=== PATIENT | female | born 2000 | race Hispanic/Latino ===

== ENCOUNTER 2023-08-30 16:19 | Observation (INO) | payer OTHER, SELFPAY | END 2023-08-30 17:07 | disposition home or self-care (01) | LOC: LABOR 16:20 | PROVIDERS: Admitting Provider Family Medicine; Referring Provider Family Medicine; Visit Provider Family Medicine | DX: Z03.71 Encounter for suspected problem with amniotic cavity and membrane ruled out (principal) | CPT/HCPCS: 59025; 84112; G0378 ==

== ENCOUNTER 2023-09-12 14:54 | Observation (INO) | payer OTHER, SELFPAY ==
--- NOTE | 2023-09-12 16:32 | PM.OBTRLD ---
Visit Information Visit Information Date of evaluation: 09/12/23 Primary OB Provider: Nathalie Frazier On-call OB Provider: Nelly Whelan Comments/Additional reasons for admission: 23yo at 31w1d who presented after falling in the grocery store. The pt reports that she tripped and fell in the grocery store, landing on her knees and then abdomen. She denies any vaginal bleeding or contractions since the fall. [facility] Surgical History (Updated 08/30/23 @ 08:27 by Nery Gonzalez, RN) History of hand surgery (~12/2022) Family History (Updated 08/30/23 @ 08:30 by Nery Gonzalez RN) Grandfather Diabetes mellitus Hypertension Grandmother Diabetes mellitus Hypertension Sister Chronic migraine Anemia Brother Kidney disease Social History marital status: number of children: 0 household members: spouse lives independently: Yes caregiver/support person: No housing: apartment pets and animals: Yes (small dog) education level: college (nearly finished w/ bachelor's degree) occupational status: student current occupational exposures/hazards: No special rodrigue needs: No travel history: recent (domestic only) seatbelt use: always water heater temp set < 120 deg: Yes working smoke detector in home: Yes fire extinguisher in home: No carbon monox detector in home: Yes firearms in home: No do you feel safe at home: Yes Smoking Status: Never smoker second hand exposure: No alcohol intake: former (~1-3/week when not ) substance use type: marijuana (not recently, not while /) during the past year weight has: remained stable (prior to ) well-balanced diet: daily or most days daily servings fruits/ve or more times/day caffeine: Yes (occasional cup tea) Type(s) of exercise: walking Evaluation Evaluation Baseline heart rate: 130 Variability: Moderate (11-25) monitor accelerations: Present Monitor Decelerations: Absent Diagnosis, Plan/Disposition Final Diagnosis (1) Ground-level fall: Status: Acute Plan/Disposition Plan: 23yo at 31w1d who presented after falling in the grocery store. No direct abdominal trauma. Prolonged NST reactive, no contractions. Pt also complaining of discolored vaginal discharge. Wet prep sent. F/U for regularly scheduled OB appt. OB Disposition: home
== END 2023-09-12 18:01 | disposition home or self-care (01) ==
LOC: LABOR 14:56
PROVIDERS: Admitting Provider Family Medicine; Referring Provider Family Medicine; Visit Provider Family Medicine
DX: O26.893 Other specified pregnancy related conditions, third trimester (principal); N89.8 Other specified noninflammatory disorders of vagina; W18.30XA Fall on same level, unspecified, initial encounter; Z3A.31 31 weeks gestation of pregnancy
CPT/HCPCS: 59025; 59050; 87210; G0378; G0379

== ENCOUNTER → 2023-10-06 09:53 | Outpatient (CLI) | payer OTHER, SELFPAY ==
[2023-10-06 10:37] LABS: Add Manual Diff / Slide Review NO; Basophils Absolute Auto 0 /uL (0-100); Basophils Percent Auto 0.1 % (0-2); Eosinophils Absolute Auto 100 /uL (0-450); Eosinophils Percent Auto 1.1 % (2-4); Hematocrit 31.2 % (36-46); Hemoglobin 10.8 g/dL (12.0-16.0); Lymphocytes Absolute Auto 1900 /uL (1100-4500); Mean Corpuscular HGB Conc 34.7 % (30-36); Mean Corpuscular Hemoglobin 33.2 PG (26-34); Mean Corpuscular Volume 95.7 fL (80-100); Monocytes Absolute Auto 500 /uL (0-900); Monocytes Percent Auto 5.4 % (3-14); Neutrophils Absolute Auto 6800 /uL (1500-7000); Neutrophils Percent Auto 73.4 % (50-75); Platelet Count 265 X10^3/uL (150-400); Red Blood Cell Count 3.27 X10^6/uL (4.0-5.2); Red Cell Distribution Width 13.1 % (11.6-14.8); White Blood Cell Count 9.3 X10^3/uL (4.5-11.0)
== END ==
PROVIDERS: PCP Family Medicine; Referring Provider Family Medicine; Visit Provider Family Medicine
DX: Z34.00 Encounter for supervision of normal first pregnancy, unspecified trimester (principal)
CPT/HCPCS: 36415; 85025; 86900; 86901

== ENCOUNTER → 2023-10-20 11:26 | Outpatient (CLI) | payer OTHER, SELFPAY ==
[2023-10-21 09:24] LABS: Strep Grp B PCR POS for Grp B Strep
== END ==
PROVIDERS: PCP Family Medicine; Visit Provider Family Medicine
DX: Z34.00 Encounter for supervision of normal first pregnancy, unspecified trimester (principal)
CPT/HCPCS: 87653

== ENCOUNTER 2023-11-11 09:02 | Observation (INO) | payer OTHER, SELFPAY ==
[2023-11-11] MEDS: AMPICILLIN 2,000 MG in SODIUM CHLORIDE 0.9% 100 ML 200 MG IV (10:00)
--- NOTE | 2023-11-11 10:08 | PM.OBHP.1 ---
OB HPI Date/Time Date of admission: 11/11/23 Date Patient Seen: 11/11/23 Time Patient Seen: 09:50 History of Present Condition Chief complaint: RULE OUT LABOR : 1 Estimated Date of Delivery: 11/13/23 Estimated Gestational Age (weeks): 39w5d Narrative: Alana Childs is a 23 year old G1 presenting at 39w5d with SROM of clear fluid at 7am this morning. She is noticing increased pelvic pressure and contractions strength/frequency since ROM. She was seen in clinic yesterday for SVE and was 1/60/-3/soft/mid. On arrival today SVE was 1-2/80/-2 and Amnisure +. has been uncomplicated aside from late transfer of care, GBS bacteriuria, placenta previa on early US which has since resolved (clearance US confirmed from outside facility), Rh- status with rhogam given late due to mid move. History of Present care: good care Dating criteria: based on LMP only Abnormal ultrasound findings: first trimester US with marginal placenta previa, cleared on 18 wk US, placenta now anterior Obstetrical complications: other (Gbs bacteriuria, marginal placenta previa (resolved)) Medical complications: none Preadmission Labs Blood type: A (-) negative -: Antibody screen: negative, GBS status: negative (GBS bacteriuria ), HBsAG: negative (outside record, 04/27/23), HIV: negative (outside record, 04/27/23) and RPR/VDLR: negative (outside record, 04/27/23) -: Chlamydia screen: not detected (outside record, 04/27/23) and Gonorrhea screen: not detected (outside record, 04/27/23) -: Rubella: immune (outside record, 04/27/23) and Varicella: unknown PAP: Normal (outside record, 04/27/23) Quad screen: Normal (outside record, 04/27/23) Cell-free DNA: Low risk male, per outside record review Evaluation Evaluation Baseline heart rate: 120 Variability: Moderate (11-25) monitor accelerations: Present Monitor Decelerations: Absent Contraction Frequency (minutes): 3 Category of Tracing: Reactive Status: Category l Dilation (cm): 1 Dilation: 1-2 cm [facility] Surgical History (Updated 08/30/23 @ 08:27 by Nery Gonzalez RN) History of hand surgery (~12/2022) Family History (Updated 08/30/23 @ 08:30 by Nery Gonzalez RN) Grandfather Diabetes mellitus Hypertension Grandmother Diabetes mellitus Hypertension Sister Chronic migraine Anemia Brother Kidney disease Social History marital status: number of children: 0 household members: spouse lives independently: Yes caregiver/support person: No housing: apartment pets and animals: Yes (small dog) education level: college (nearly finished w/ bachelor's degree) occupational status: student current occupational exposures/hazards: No special rodrigue needs: No travel history: recent (domestic only) seatbelt use: always water heater temp set < 120 deg: Yes working smoke detector in home: Yes fire extinguisher in home: No carbon monox detector in home: Yes firearms in home: No do you feel safe at home: Yes Smoking Status: Never smoker second hand exposure: No alcohol intake: former (~1-3/week when not ) substance use type: marijuana (not recently, not while /) during the past year weight has: remained stable (prior to ) well-balanced diet: daily or most days daily servings fruits/ve or more times/day caffeine: Yes (occasional cup tea) Type(s) of exercise: walking Meds Home Medications and Allergies Home Medications Medication Instructions Recorded Confirmed Type vit 122-ferrous fumarate tab PO 08/30/23 11/10/23 History 27 mg iron-folic acid 800 mcg tablet ( Multi) ferrous sulfate 325 mg (65 mg 325 mg PO DAILY 09/22/23 11/11/23 History iron) tablet (FeroSul) famotidine 20 mg tablet (Pepcid) 20 mg PO DAILY #30 tabs 10/06/23 11/11/23 Rx Allergies Allergy/AdvReac Type Severity Reaction Status Date / Time No Known Drug Allergies Allergy Verified 11/11/23 10:12 Review of Systems Review of Systems Narrative: + contractions + pelvic pressure + LOF + movement OB Exam Vital signs Blood Pressure: 110/72 Pulse Rate: 65 Temperature: 96.3 F Narrative Exam Narrative: Gen: uncomfortable appearing, pacing, breathing through contractions pulm: breathing comfrtably between contractions CV; warm and well perfused Abd: gravid Objective Labs 11/11/23 09:55 Assessment and Plan Assessment and Plan Assessment and Plan narrative: 23 yo G1 presenting at 39w5d by LMP C/w first trimester US with SROM at 7am on # SROM: now 3 hrs since ROM, no sign of infection - Admit to LD - GBS positive - One starting 2nd dose of GBS ppx, will plan to start pitocin for augmentation unless contraction pattern becoes more consistent and pt starts making cervical change - Continuous monitoring, Cat 1 now - CBC, TS - Rh negative, will need Rhogam - Rubbella immune, VZV unkn - HIV, RPR, hep B, Gc/chl negative - Partner Dav is present - cfDNA: low risk male completed at outside facility # GBS bacteriuria in - Start Ampicillin ppx now Time-Based Coding :: [TOTAL MINUTES] spent with patient and on the chart (including review of chart, obtaining history, exam, reviewing outside data, placing orders, documenting exam and treatment plan, and counseling patient) on [DATE].
[2023-11-11] MEDS: LACTATED RINGERS 1,000 ML 100 ML IV (10:10)
[2023-11-11 10:12] LABS: Add Manual Diff / Slide Review NO; Basophils Absolute Auto 0 /uL (0-100); Basophils Percent Auto 0.5 % (0-2); Eosinophils Absolute Auto 100 /uL (0-450); Eosinophils Percent Auto 1.2 % (2-4); Hematocrit 34.7 % (36-46); Hemoglobin 11.9 g/dL (12.0-16.0); Lymphocytes Absolute Auto 2100 /uL (1100-4500); Mean Corpuscular HGB Conc 34.2 % (30-36); Mean Corpuscular Hemoglobin 32.1 PG (26-34); Mean Corpuscular Volume 93.8 fL (80-100); Monocytes Absolute Auto 500 /uL (0-900); Monocytes Percent Auto 5.5 % (3-14); Neutrophils Absolute Auto 5700 /uL (1500-7000); Neutrophils Percent Auto 67.8 % (50-75); Platelet Count 266 X10^3/uL (150-400); White Blood Cell Count 8.4 X10^3/uL (4.5-11.0)
[2023-11-11 10:14] VITALS: BP 115/69
[2023-11-11 10:26] VITALS: BP 110/72; PULSE 65; TEMP 35.7
--- NOTE | 2023-11-11 10:34 | PM.AN.REGBLK ---
Regional Block Pre-procedure Procedure: Continuous Lumbar Epidural for L&D Attending OB provider: Nathalie Frazier PM/ROS narrative: 23 y/o G1, term labor, no medical or obstetric complications. ASA Class: II Labs: Hct 34.7 % (36-46) L 11/11/23 09:55 Plt Count 266 X10^3/uL (150-400) 11/11/23 09:55 Medications: Current Medications Generic Name Dose Route Start Last Admin Trade Name Freq PRN Reason Stop Dose Admin Calcium Carbonate 1,000 mg 11/11/23 09:41 Calcium Carbonate 500 Mg Tab PO Q2HR PRN Dyspepsia Carboprost Tromethamine 250 mcg 11/11/23 09:41 Carboprost 250 Mcg/Ml Ampul IM Q90M PRN Bleeding Oxytocin/Lactated Ringer's 30 unit in 500 mls @ 200 mls/hr 11/11/23 09:41 Oxytocin Premix IV CONT PRN Bleeding Protocol Tranexamic Acid 1,000 mg/ 100 mls @ 600 mls/hr 11/11/23 09:41 Sodium Chloride IV NOW PRN Bleeding Oxytocin/Lactated Ringer's 30 unit in 500 mls @ 2 mls/hr 11/11/23 09:45 Oxytocin Premix IV TITRATE JANEL Protocol 2 MILLIUNIT/MIN Lactated Ringer's 1,000 mls @ 100 mls/hr 11/11/23 09:45 11/11/23 10:10 Lactated Ringers IV 11/11/23 19:44 100 mls/hr CONT JANEL Administration Ampicillin Sodium 1,000 mg/ 100 mls @ 200 mls/hr 11/11/23 14:00 Sodium Chloride IV Q4H JANEL Lidocaine HCl 20 ml 11/11/23 09:41 Lidocaine 1% 20 Ml INJ INTRA-OP PRN Post Delivery Methylergonovine Maleate 0.2 mg 11/11/23 09:41 Methylergonovine 0.2 Mg Tablet PO Q6HR PRN Heavy Bleeding Methylergonovine Maleate 0.2 mg 11/11/23 09:41 Methylergonovine 0.2 Mg/Ml Vial IM NOW PRN Bleeding Mineral Oil 30 ml 11/11/23 09:41 Mineral Oil 30 Ml Udc TOP PRN PRN Version Misoprostol 800 mcg 11/11/23 09:41 Misoprostol 200 Mcg Tablet WA NOW PRN Bleeding Misoprostol 400 mcg 11/11/23 09:41 Misoprostol 200 Mcg Tablet SL NOW PRN Bleeding Naloxone HCl 0.2 mg 11/11/23 09:41 Naloxone 0.4 Mg/Ml Vial IV Q2MIN PRN Opiate Reversal Ondansetron HCl 4 mg 11/11/23 09:41 Ondansetron 4 Mg/2 Ml Inj IV Q4HR PRN Nausea And Vomiting Oxytocin 10 unit 11/11/23 09:41 Oxytocin 10 Unit/Ml Vial IM NOW PRN Bleeding Allergies: Allergies Allergy/AdvReac Type Severity Reaction Status Date / Time No Known Drug Allergies Allergy Verified 11/11/23 10:12 Procedure Insertion date: 11/11/23 Insertion time: 10:48 Prep/Local: betadine x3 and 1% lidocaine Interspace: L34 Patient position: sitting Needle: 18 gauge Hustead (CSE: 27g Pencan through Hustead, clear CSF, 1mL 0.25% MPF Bupiv) Loss of resistance with: saline SILVINA at (cm): 5 Catheter placed at SKIN (cm): 11 Catheter in SPACE (cm): 6 Insertion: No CSF, No Blood, No Paresthesia with insertion, No Paresthesia with injection and No Test dose reaction Initial Medications TEST DOSE time: 10:50 TEST DOSE: 1.5% lidocaine with epinephrine 1:200k (mL): 3 BOLUS DOSE time: 10:57 BOLUS DOSE (mL): 4 BOLUS DOSE med: other (infusate) Infusion INFUSION: 0.125% bupivacaine and with fentanyl 2 mcg/mL Initial rate (mL/hr): 8 Subsequent interventions: 11/11 0840: feeling contractions/pressure perineal. 5mL 0.25% bupiv and rate 8 --> 10mL/h. 0900: 5mL 2-chloroprocaine and 50mcg fentanyl To OR for CS, failure to progress. Post-procedure Anesthesia date START: 11/11/23 Anesthesia time START: 10:40 Anesthesia date END: 11/12/23 Anesthesia time END: 10:14 Post-procedure Anesthesia Assessment: Yes CV function: HR/BP stable, Yes Resp function: RR/sat/airway adequate, Yes Post-op hydration adequate, Yes Pain control adequate, Yes Nausea & vomiting absent, Yes Temperature > 36 C, Yes Mental status appropriate and No Anesthesia complications
[2023-11-11] MEDS: OXYTOCIN PREMIX 30 UNIT/500 ML PLAST..BAG IV (11:45)
[2023-11-11] MEDS: AMPICILLIN 1,000 MG in SODIUM CHLORIDE 0.9% 100 ML 200 MG IV (14:08)
== END 2023-11-11 14:17 | disposition home or self-care (01) ==
PROVIDERS: Admitting Provider Family Medicine; PCP Family Medicine; Referring Provider Family Medicine; Visit Provider Family Medicine
DX: O42.92 Full-term premature rupture of membranes, unspecified as to length of time between rupture and onset of labor (principal); O99.820 Streptococcus B carrier state complicating pregnancy; Z3A.39 39 weeks gestation of pregnancy
CPT/HCPCS: 36415; 84112; 85025; 86850; 86900; 86901; G0378; G0379; J0290; J2590

== ENCOUNTER 2023-11-11 16:04 | Inpatient (IN) | payer OTHER, SELFPAY ==
[2023-11-11] MEDS: LACTATED RINGERS 1,000 ML 100 ML IV (16:38)
[2023-11-11] MEDS: FENT 2MCG/ML BUPIV 0.125% EPI 200 MCG/100 ML PLAST..BAG 6 MCG EPIDURAL ×2 (16:38→22:10)
[2023-11-11 16:54] VITALS: BP 105/61
[2023-11-11] MEDS: AMPICILLIN 1,000 MG in SODIUM CHLORIDE 0.9% 100 ML 200 MG IV ×2 (18:08→22:09)
--- NOTE | 2023-11-11 21:24 | PM.OBPNLAB ---
Date/Time Date Patient Seen: 11/11/23 Time Patient Seen: 17:30 Pain Control Comments: comfortbale with epidural in place Pelvic Exam Dilation (cm): 3 Effacement (%): 90 station: -1 Amniotic membrane status: Ruptured Comments: while placing IUPC, cervix stretches to 4cm Contractions Pitocin rate (mU/min): 9 Status status: Category ll Heart Rate Baseline: 120 Monitor Accelerations: Present Monitor Decelerations: Variable (occassional, resolve with position changes ) Monitor Variability: Moderate Assessment and Plan Plan: continuous present management Comments: 23 yo G1 presenting at 39w5d by LMP C/w first trimester US with SROM at 7am on 11/10. Now 13 hours since ROM. COntractions regular, occuring every 2 min which is limiting PItocin augmentation. Will place IUPC to assist with titration. IUPC placed without difficulty at 17:35 No sign of fever/intra-amniotic infection Tolerating labor well with epidural FHT Cat II but overall good variability between occassional variable declerations
[2023-11-12] MEDS: AMPICILLIN 1,000 MG in SODIUM CHLORIDE 0.9% 100 ML 200 MG IV ×2 (02:06→06:11)
[2023-11-12] MEDS: diphenhydrAMINE 50 MG/ML VIAL 25 MG IV (03:25)
[2023-11-12] MEDS: LACTATED RINGERS 1,000 ML 100 ML IV ×4 (03:44→12:49)
--- NOTE | 2023-11-12 03:58 | PM.OBPNLAB ---
Date/Time Date Patient Seen: 11/12/23 Time Patient Seen: 03:38 Pain Control Pain control: epidural Pelvic Exam Dilation (cm): 6 Effacement (%): 90 station: -1 Amniotic membrane status: Ruptured Contractions Pitocin rate (mU/min): 0 Contraction frequency (min): 2 Contraction duration (min): 1 Contraction pattern: Regular Status status: Category ll Heart Rate Baseline: 140 Monitor Accelerations: Present Monitor Decelerations: Late Monitor Variability: Moderate Comments: Prolonged decel at 03:25, monitor not tracing well during, position changed attempted + pitocin stopped, decel resolved at 3:31. Followed by moderate variability and accelerations for a few minutes. TRacing now showing short sections of minimal variability without accels but is improving slowly and by 4:15 variability back to moderate Assessment and Plan Assessment: active labor Comments: 23 yo G1 presenting at 39w6d by LMP C/w first trimester US with SROM at 7am on 11/10. Now 21 hours since ROM. FHT cat 2 with occassional shallow variabiles wtih good recovery following over the last few hours. Contractions occasional adequate, but mostly inadequate. Over half an hour, FHt now good variability and accels. Contractions spaced out to every 3 minutes and well below 200MVU. Will increase Pit again slowly after 30 min of reassuring FHT and see if FHT tolerate return of Pit. #SROM: approaching 24 hour of rupture. No sign of intra-amniotic infection - continue with pit augmentation - IUPC in place for titration, currently inadequate - GBS ppx adequate, continue ampicillin - continuous monitoring # Prolonged deceleration x1: resolved wtih turning off Pit and position changes after 5 min, FHT now reassuring. SVE slowly changing, now /-
--- NOTE | 2023-11-12 09:30 | PM.OBPNLAB ---
Date/Time Date Patient Seen: 11/12/23 Time Patient Seen: 09:10 Pain Control Pain control: epidural Pelvic Exam Dilation (cm): 7 Effacement (%): 90 Amniotic membrane status: Ruptured Contractions Pitocin rate (mU/min): 8 Contraction frequency (min): 3 Contraction duration (min): 1 Contraction pattern: Regular Status status: Category ll Heart Rate Baseline: 130 Monitor Accelerations: Absent Monitor Decelerations: Absent Monitor Variability: Moderate Assessment and Plan Plan: Comments: 23 yo G1 presenting at 39w6d by LMP C/w first trimester US with SROM at 7am on 11/10. Now 26 hours since rupture and no sign of intra-amniotic infection but minimal progress since 3:30am and FHT non-reassuring with variable and late decelerations and periods of minimal variability without accels. Discussed with pt recommendation to proceed to CS due to failure to progress and NRFHT. She is agreeable. consent signed Ancef 2g + azithro for surgical ppx and ROM PLan to use epidural if able, if insufficient coverage will convert to general RT at delivery due to unplanned status and NRFHT
[2023-11-12 10:03] LABS: Add Manual Diff / Slide Review NO; Basophils Absolute Auto 0 /uL (0-100); Basophils Percent Auto 0.2 % (0-2); Eosinophils Absolute Auto 0 /uL (0-450); Eosinophils Percent Auto 0.1 % (2-4); Hematocrit 33.8 % (36-46); Hemoglobin 11.3 g/dL (12.0-16.0); Lymphocytes Absolute Auto 1500 /uL (1100-4500); Lymphocytes Percent Auto 13.9 % (25-40); Mean Corpuscular HGB Conc 33.5 % (30-36); Mean Corpuscular Hemoglobin 32.1 PG (26-34); Mean Corpuscular Volume 95.8 fL (80-100); Monocytes Absolute Auto 500 /uL (0-900); Monocytes Percent Auto 4.6 % (3-14); Neutrophils Absolute Auto 8700 /uL (1500-7000); Neutrophils Percent Auto 81.2 % (50-75); Platelet Count 236 X10^3/uL (150-400); Red Blood Cell Count 3.53 X10^6/uL (4.0-5.2); White Blood Cell Count 10.7 X10^3/uL (4.5-11.0)
[2023-11-12] MEDS: CEFAZOLIN 2 GM/100 ML PREMIX 100 ML IV (10:21)
[2023-11-12] MEDS: ACETAMINOPHEN IV 1,000 MG/100 ML VIAL 400 MG IV (10:30)
[2023-11-12] MEDS: AZITHROMYCIN 500 MG in DEXTROSE 5% IN WATER 250 ML 250 MG IV (10:33)
[2023-11-12] MEDS: hydrOXYzine 50 MG/ML INJ 25 MG IM (10:50)
--- NOTE | 2023-11-12 10:52 | SUR.OPER ---
Supine on Padded OR bed, head on pillow, safety belt at thigh, arms secured on padded arm boards at <90 degrees abduction. Bump under right buttock. Legs uncrossed with pillow under knees, gel pad to heels, tape over blanket to lower legs.
[2023-11-12] MEDS: TRANEXAMIC ACID 1,000 MG in SODIUM CHLORIDE 0.9% 100 ML 600 MG IV (11:10)
--- NOTE | 2023-11-12 11:23 | SUR.OPER ---
Viable baby boy born on 11/12/2023 at 1105am.
[2023-11-12] MEDS: BUPIVACAINE LIPOSOME 266 MG/20 ML VIAL INJ (11:27)
[2023-11-12 12:00] VITALS: BP 118/64; PULSE 82; RESP 18; O2SAT 97
[2023-11-12 12:03] VITALS: BP 127/69; PULSE 85; RESP 20; O2SAT 97
[2023-11-12 12:08] VITALS: BP 123/76; PULSE 79; RESP 19; O2SAT 98
--- NOTE | 2023-11-12 12:10 | P.OP_ITS ---
Operative Date/Time/Diagnoses Date of procedure: 11/12/23 Time of procedure: 11:05 Pre-op diagnosis: Non-reassuring FHT, failure to progress Procedure & Clinicians Procedure: Primary Low trasnverse CS Same procedure as scheduled: Yes Indications: non-reassuring FHT, failure to progress Surgeon: Nathalie Frazier Click Yes if Unassisted: No Computer Technician: Leana Alvarez Reason for Computer Technician: Computer Technician required for the safe, effective, and timely completion of this surgery. The assistant construction superintendent was necessary to retract upon entry into the abdomen and uterus. Assisted with delivery of the infant with fundal pressure. Assisted with closure with retraction, holding suture, and closure of the contralateral fascia. Anesthesia Type: General and Epidural (epidural with insufficient control, converted to general ) Operative Notes Findings: Normal uterus, ovaries, and tubes Closure Type: primary Specimen(s): cord blood Intraoperative meds administered: Methergine, Pitocin and Tranexamic acid Applied: Catheter Estimated Blood Loss (mL): 600 Blood products transfused: none Procedure in detail: The patient was taken to the operating room where epidural anesthesia was tested and thought to be adequate. She was then prepared and draped in the normal sterile fashion in the dorsal supine position with a leftward tilt. Anesthesia was tested and found to be inadequate on maternal left along planning incision site. Epidural catheter was withdrawn slightly to see if this improved control. Anesthesia continued to be inadequate so decision made to convert to general. A Pfannensteil skin incision was then made with the scalpel and carried through to the underlying layer of fascia with the scalpel. The fascia was incised in the midline and the incision extended laterally bluntly. The rectus muscles were then in the midline, and the peritoneum was identified and entered bluntly. The peritoneal incision was then extended with good visualization of the bladder. Retraction was provided by the carpenter's assistant. The bladder blade was then inserted and the vesicouterine peritoneum identified and decision made not to make a bladder flap. The lower uterine segment was incised in a transverse fashion with the scalpel, with the carpenter's assistant providing suction. The uterine incision was then extended by pulling superolaterally on both sides. The bladder blade was removed the infant's head was flexed out of ROT position and delivered atraumatically, with fundal pressure by the carpenter's assistant. The cord was clamped and cut immediately due to general anesthesia. The infant was handed off to the waiting nursing staff. Cord blood was collected. Time of delivery was 11:05. APGARS were 9 and 9 at one and five minutes respectively. The placenta was then delivered with gentle cord traction. The uterus was then exteriorized and cleared of all clots and debris. The uterine incision was repaired with 0 Vicryl in a running, locked fashion. The uterus was noted to be boggy despite Pitocin infusion so 1g TXA was given. Boggy uterus persisted so Methergine was administered as well. A second layer of the same suture was used to obtain excellent hemostasis. The lower uterine segment was thin and suture did tear through during first layer. The edges of the tears were incorporated into the imbricating layer and hemostasis was assured. Uterine tone improved after closure and with PPH medications. The uterus was returned to the abdomen. The gutters were cleared of all clots. Hysterotomy was investigated and found to be hemostatic. The rectus was examined and ensured to be hemostatic. The fascia was reapproximated with 0 Vicryl in a running fashion. Exparel was infused above the fascia for additional pain c ontrol. The subcutaneous tissue was reapproximated with 3-0 vicryl. The skin was closed with 3-0 monocryl. SPONGE AND NEEDLE COUNTS: Correct x3. DRESSING: Aquacel ANTICOAGULATION: SCDs applied prior to Surgery Preop antibiotics given (see MAR). The patient was taken to recovery room having tolerated procedure well. Complications: none Post-operative Condition: stable Disposition: PACU Aftercare: routine postop
[2023-11-12] MEDS: KETOROLAC 30 MG/ML VIAL IV ×3 (12:16→23:49)
[2023-11-12 12:18] VITALS: BP 123/75; PULSE 86; RESP 19; O2SAT 98
[2023-11-12] MEDS: OXYCODONE IR 5 MG TABLET PO (12:49)
[2023-11-12] MEDS: ACETAMINOPHEN 325 MG TABLET 650 MG PO (21:04)
[2023-11-13] MEDS: ACETAMINOPHEN 325 MG TABLET 650 MG PO ×3 (03:19→23:38)
[2023-11-13 05:46] LABS: Add Manual Diff / Slide Review NO; Basophils Absolute Auto 0 /uL (0-100); Basophils Percent Auto 0.2 % (0-2); Eosinophils Absolute Auto 100 /uL (0-450); Eosinophils Percent Auto 0.5 % (2-4); Hematocrit 25.7 % (36-46); Hemoglobin 8.6 g/dL (12.0-16.0); Lymphocytes Absolute Auto 1700 /uL (1100-4500); Lymphocytes Percent Auto 13.7 % (25-40); Mean Corpuscular HGB Conc 33.6 % (30-36); Mean Corpuscular Hemoglobin 32.1 PG (26-34); Mean Corpuscular Volume 95.6 fL (80-100); Monocytes Absolute Auto 800 /uL (0-900); Monocytes Percent Auto 6.6 % (3-14); Neutrophils Absolute Auto 10100 /uL (1500-7000); Platelet Count 190 X10^3/uL (150-400); Red Blood Cell Count 2.69 X10^6/uL (4.0-5.2); Red Cell Distribution Width 13.5 % (11.6-14.8); White Blood Cell Count 12.7 X10^3/uL (4.5-11.0)
[2023-11-13] MEDS: KETOROLAC 30 MG/ML VIAL IV (05:58)
[2023-11-13] MEDS: DOCUSATE 100 MG CAPSULE PO (08:11)
[2023-11-13] MEDS: FERROUS SULFATE 325 MG TABLET PO (08:22)
[2023-11-13] MEDS: PRENATAL VIT,CALC/IRON/FOLIC 1 TABLET 1 TAB PO (08:22)
--- NOTE | 2023-11-13 12:32 | PM.OBPN.1 ---
Subjective - OB Subjective Interval history: Pt is doing well overall. Her lochia is decreasing appropriately. She is working on . Her pain is well controlled, although slightly increased currently. She has passed flatus, voided, and ambulated. Exam Vital Signs (past 8 hours): Oxygen Delivery Method Room Air Resp Auscultation: clear to auscultation bilaterally Cardio Rate: regular rate Rhythm: regular rhythm Heart Sounds: S1 normal, S2 normal and no murmurs GI Inspection: non-distended and incision (dressing c/d/i) Palpation: soft, No guarding and tender (appropriately tender) Auscultation: normal bowel sounds Other: fundus firm and below the umbilicus Extrem Right upper extremity: no edema Objective Labs 11/13/23 05:30 Labs: Laboratory Results - last 24 hr 11/13/23 05:30 WBC 12.7 H RBC 2.69 L Hgb 8.6 L Hct 25.7 L MCV 95.6 MCH 32.1 MCHC 33.6 RDW 13.5 Plt Count 190 Neut % (Auto) 79.0 H Lymph % (Auto) 13.7 L [place] % (Auto) 6.6 Eos % (Auto) 0.5 L Baso % (Auto) 0.2 Neut # (Auto) 30864 H Lymph # (Auto) 1700 [place] # (Auto) 800 Eos # (Auto) 100 Baso # (Auto) 0 Assessment & Plan Plan Comments: 23yo POD#1 s/p primary for failure to progress and nonreassuring FHT. Pt doing well overall. - Continue support - Normal care - Iron supplement for acute blood loss anemia Time-Based Coding :: 10 spent with patient and on the chart (including review of chart, obtaining history, exam, reviewing outside data, placing orders, documenting exam and treatment plan, and counseling patient) on 11/13/23.
[2023-11-13] MEDS: IBUPROFEN 600 MG TABLET PO ×2 (14:46→20:52)
[2023-11-14] MEDS: IBUPROFEN 600 MG TABLET PO ×2 (02:56→08:59)
[2023-11-14] MEDS: FERROUS SULFATE 325 MG TABLET PO (08:59)
[2023-11-14] MEDS: PRENATAL VIT,CALC/IRON/FOLIC 1 TABLET 1 TAB PO (08:59)
[2023-11-14] MEDS: DOCUSATE 100 MG CAPSULE PO (09:00)
[2023-11-14] MEDS: ACETAMINOPHEN 325 MG TABLET 650 MG PO (09:00)
--- NOTE | 2023-11-14 11:20 | PM.OBDS.1 ---
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 on 11/10. on arrival she was started on GBS prophylaxis due to history of GBS bacteriuria earlier in . She was started on Pitocin for augmentation and made slow progress. she progressed slowly and IUPC was placed for assistance with titration and continued uterine tone monitoring. She showed no signs of intra amniotic infection. She made very slow progress and began having decelerations with 1 prolonged decel lasting approximately 5 minutes. She did have good recovery so was monitored for a while longer but due to very minimal change control specialist the next few hours, decision made to move to for nonreassuring heart tracings and failure to progress. was complicated by Inadequate anesthesia from epidural requiring transitioned to general anesthesia and poor uterine tone necessitating TXA, Pitocin and Methergine intraoperatively. infant tolerated procedure well and Apgars were 9/9 at 1 and 5 minutes respectively. Postoperative course was uncomplicated. By the time of discharge bleeding has slowed and uterine tenderness is typical for postop day 2. She is voiding and passing gas and is able to ambulate without assistance. She is well and feels ready to go home. Follow up with scheduled for 6 days postop for wound check and dressing removal Status at Discharge Cognitive/behavioral status at discharge: oriented Functional status at discharge: independent ambulation Time Spent with Patient Time attestation: Total time spent providing and/or coordinating discharge services:30 min Time spent: Less than 30 minutes Objective Labs 11/13/23 05:30 Exam Vital Signs (past 8 hours): Oxygen Delivery Method Room Air Narrative Exam Narrative: GEn: alert, NAD Psyc: A&O x3 CV: RRR, no murmurs Pulm: CTAB Abd: mild tenderness with palpation, fundus firm Extremities: symmetric +1 edema, non-tender Discharge Plan Discharge Plan Patient Disposition: Home Discharge orders & Medications Prescriptions: New polyethylene glycol 3350 17 gram Powder In Packet 17 g PO DAILY PRN (Reason: Constipation) Qty: 7 0RF Rx Instructions: take daily while using narcotics oxycodone 5 mg Tablet 5 mg PO Q4H PRN (Reason: Pain, Moderate (4-6)) Qty: 15 0RF Continued ferrous sulfate [FeroSul] 325 mg (65 mg iron) tablet 325 mg PO DAILY famotidine [Pepcid] 20 mg tablet 20 mg PO DAILY Qty: 30 0RF Multi 27-800 mg-mcg tablet 1 tab PO DAILY Follow up/Referrals: Nathalie Frazier MD [Primary Care Provider] - (1 week Incision Check w/ Dr. Frazier: @ 4:30pm) Visit Report/Discharge Packet Instructions: Depression, Hemorrhage, DI for Stand Alone Forms: Discharge: Care, Patient Portal/API, Stroke Signs & Symptoms Discharge Data Primary Care Provider: Nathalie Frazier Discharges patient from system. Discharge Date/Time: 11/14/23 13:45
== END 2023-11-14 13:45 | disposition home or self-care (01) | DRG 788 ==
PROVIDERS: Admitting Provider Family Medicine; PCP Family Medicine; Referring Provider Family Medicine; Visit Provider Family Medicine
PROC: 10D00Z1 Extraction of Products of Conception, Low, Open Approach (ICD-10-PCS; CPT 59514; principal; 2023-11-12 10:00)
DX: O76 Abnormality in fetal heart rate and rhythm complicating labor and delivery (principal); O32.4XX0 Maternal care for high head at term, not applicable or unspecified; O42.12 Full-term premature rupture of membranes, onset of labor more than 24 hours following rupture; Z3A.39 39 weeks gestation of pregnancy; Z37.0 Single live birth
CPT/HCPCS: 36415; 59025; 59050; 84112; 85025; 86850; 86900; 86901; G0378; C9290; G0379; J0136; J0290; J0690; J1100; J1200; J1885; J2274; J2405; J2590; J2704; J3010; J3410